=== PATIENT | female | born 1965 | race Caucasian/White ===

== ENCOUNTER → 2024-01-13 | Day surgery (SDC) | payer MEDICAID ==
[~2024-01-13] MED LIST: LIDOCAINE HCL 1% 10 MG/ML 10ML VIAL ONE; SODIUM BICARBONATE 4% 2.4MEQ/5ML VIAL IV ONE
== END | disposition home or self-care (01) ==
LOC: RAD 10:40
PROVIDERS: ATTEND Surgery Surgical Oncology
DX: N60.92 Unspecified benign mammary dysplasia of left breast (principal); Z79.899 Other long term (current) drug therapy
CPT/HCPCS: 19281; J3490 ×2; A4648

== ENCOUNTER 2024-01-16 06:50 | Day surgery (SDC) | payer MEDICAID ==
[~2024-01-16] VITALS: Ht 160 cm; Wt 80.7 kg
[2024-01-16] MEDS ORDERED: LIDOCAINE HCL/EPINEPHRINE 1%-EPI 1:100,000 20ML VIAL ONE (07:44)
[2024-01-16] MEDS ORDERED: BUPIVACAINE HCL/PF 0.5% (5MG/ML) 10ML ONE (07:44)
[2024-01-16] MEDS ORDERED: METHYLENE BLUE 50MG/10ML AMP IV ONE (07:45)
[2024-01-16] MEDS: SODIUM CHLORIDE 0.9% 1,000 ML IV SCH (08:41)
[2024-01-16] MEDS ORDERED: LIDOCAINE HCL/PF 1% 10 MG/ML 5ML VIAL ONE (08:54)
[2024-01-16] MEDS ORDERED: ONDANSETRON HCL 4MG/2ML INJ ONE (08:54)
[2024-01-16] MEDS ORDERED: DEXAMETHASONE 4MG/ML 1ML VIAL ONE (08:54)
[2024-01-16] MEDS ORDERED: PROPOFOL 200MG/20ML VIAL IV ONE ×2 (08:55→09:07)
[2024-01-16] MEDS ORDERED: FENTANYL CITRATE/PF 50MCG/ML 2ML VIAL ONE (08:56)
[2024-01-16] MEDS ORDERED: MIDAZOLAM HCL 2 MG/2 ML VIAL ONE (09:01)
[2024-01-16] MEDS ORDERED: ACETAMINOPHEN 1000MG/100ML 100 ML IV ONE (09:41)
[2024-01-16] MEDS ORDERED: FENTANYL CITRATE/PF 50MCG/ML 2ML VIAL IV PRN (09:45)
[2024-01-16] MEDS ORDERED: ONDANSETRON HCL 4MG/2ML INJ IV PRN (09:45)
[2024-01-16] MEDS ORDERED: HYDROMORPHONE HCL/PF 1MG/ML INJ IV PRN (09:45)
== END 2024-01-16 12:10 | disposition home or self-care (01) ==
LOC: OR 06:50
PROVIDERS: ATTEND Surgery Surgical Oncology
DX: N60.92 Unspecified benign mammary dysplasia of left breast (principal); N60.32 Fibrosclerosis of left breast; N60.42 Mammary duct ectasia of left breast; N60.82 Other benign mammary dysplasias of left breast; E78.2 Mixed hyperlipidemia; E66.3 Overweight; Z68.31 Body mass index [BMI] 31.0-31.9, adult; Z79.899 Other long term (current) drug therapy; Z98.890 Other specified postprocedural states
CPT/HCPCS: 19125; 82962; 88305; 76098; J3010; J3490 ×3; J1100; Q9968; J2250; J2405; J2704; A4663; J2004; J0131